=== PATIENT | female | born 1955 | race American Indian/Alaskan Native ===

== ENCOUNTER 2018-12-14 16:45 | Emergency (ER) | payer MEDICARE, OTHER ==
--- NOTE | 2018-12-14 17:46 | Emergency Department Report ---
Blank Doc - Documentation Documentation: 63 y/o female come in for lower blood pressure fatigue, and diizziness. Recently donated plasma. Last donated on Monday. No medications.
[2018-12-14 18:06] LABS: Hematocrit 38.2 % (30.3-42.9); Hemoglobin 12.2 gm/dl (10.1-14.3); Mean Corpuscular HGB Conc 32 % (30-34); Mean Corpuscular Volume 86 fl (79-97); Platelet Count 333 K/mm3 (140-440); Red Blood Count 4.42 M/mm3 (3.65-5.03); Red Cell Distribution Width 15.1 % (13.2-15.2)
[2018-12-14 18:30] LABS: Bacteria,Urine 1+ /HPF (Negative); Bilirubin,Urine NEG (Negative); Blood,Urine NEG (Negative); Color,Urine Yellow (Yellow); Mucus,Urine FEW /HPF
[2018-12-14 18:44] LABS: Albumin 4.2 g/dL (3.9-5); Calcium 8.9 mg/dL (8.4-10.2)
[2018-12-14] MEDS ORDERED: NACL 0.9% 1000 ML 2,000 ML IV ONE (18:54)
[2018-12-14] MEDS ORDERED: NACL 0.9% 1000 ML 1,000 ML IV ONE (18:54)
--- NOTE | 2018-12-14 18:55 | Emergency Department Report ---
ED General Adult HPI - General Chief complaint: Weakness Stated complaint: DIZZINESS/LOW BLOOD PRESSURE Time Seen by Provider: 12/14/18 17:11 Source: patient, RN notes reviewed Mode of arrival: Ambulatory Limitations: No Limitations - History of Present Illness Initial comments: This is a 63-year-old female. The patient is not known to this provider pr eviously. She does not have a local primary care doctor. She does not take any chronic medications. She denies a history of chronic medical problems. She presents to the emergency room with complaint of painless lightheadedness and almost passing out. This has been going on for 1 day. It is intermittent. It decreases with rest, and sitting flat. It also decreased with IV fluids. She denies headache, neck pain, chest pain, abdominal pain, shortness of breath. She denies urinary symptoms. She reports dark brown stool. Has not had a colonoscopy less far. Had a Pap smear and mammogram 3 years ago, which she believes were "normal." Reports recent road shipped to [place] within the past month, no leg pain, no leg swelling, and reports one-stop during her road trip for a bathroom break. The patient denies headache. -: Gradual Severity scale (0 -10): 0 Consistency: intermittent Improves with: other Worsens with: other - Related Data Allergies Allergy/AdvReac Type Severity Reaction Status Date / Time No Known Allergies Allergy Unverified 12/14/18 16:54 ED Review of Systems ROS: Stated complaint: DIZZINESS/LOW BLOOD PRESSURE Other details as noted in HPI Constitutional: malaise, weakness. denies: fever Eyes: denies: eye discharge ENT: denies: epistaxis Respiratory: denies: cough Cardiovascular: other. denies: chest pain Gastrointestinal: denies: abdominal pain, nausea, vomiting, hematemesis, melena, hematochezia Genitourinary: denies: dysuria Skin: denies: as per HPI, lesions Neurological: weakness. denies: headache, numbness, paresthesias, confusion Psychiatric: denies: anxiety ED Past Medical Hx - Past Medical History Previous Medical History?: No - Surgical History Past Surgical History?: No - Social History Smoking Status: Current Every Day Smoker Substance Use Type: Alcohol ED Physical Exam - General Limitations: No Limitations General appearance: alert, in no apparent distress - Head Head exam: Present: atraumatic, normocephalic - Eye Eye exam: Present: normal appearance, PERRL, EOMI, other (visual acuity intact to finger counting, color perception, reading at a close distance). Absent: nystagmus - ENT ENT exam: Present: normal exam, normal orophraynx, mucous membranes moist, normal external ear exam - Neck Neck exam: Present: normal inspection, full ROM. Absent: tenderness, meningismus - Respiratory Respiratory exam: Present: normal lung sounds bilaterally. Absent: respiratory distress - Cardiovascular Cardiovascular Exam: Present: regular rate, normal rhythm, normal heart sounds. Absent: bradycardia, tachycardia, irregular rhythm, systolic murmur, diastolic murmur, rubs, gallop - GI/Abdominal GI/Abdominal exam: Present: soft. Absent: distended, tenderness, guarding, rebound, rigid, pulsatile mass - Rectal Rectal exam: Present: normal inspection, normal rectal tone, heme (-) stool, other (chaperoned by nurse LAKISHA WESTON). Absent: heme (+) stool, black stool, bloody stool, fecal impaction, hemorrhoids, mass, tenderness - Extremities Exam Extremities exam: Present: normal inspection, full ROM, other (2+ pulses noted in the bilateral upper, lower extremities. Compartments soft. No long bony tenderness. The pelvis is stable.). Absent: pedal edema, joint swelling, calf tenderness - Back Exam Back exam: Present: normal inspection, full ROM. Absent: tenderness, CVA tenderness (R), CVA tenderness (L), paraspinal tenderness, vertebral tenderness - Neurological Exam Neurological exam: Present: alert (there is no past-pointing. There is normal [id number]. There is a negative pronator drift.), oriented X3, other (Extraocular movements intact. Tongue midline. No facial droop. Facial sensation intact to light touch in the V1, V2, V3 distribution bilaterally. 5 and 5 strength in 4 extremities.. Sensation is intact to light touch in 4 extremities.). Absent: motor sensory deficit - Psychiatric Psychiatric exam: Present: normal affect, normal mood - Skin Skin exam: Present: warm, dry, intact, normal color. Absent: rash ED Course Vital Signs 12/14/18 12/14/18 12/14/18 17:11 18:06 19:15 Temperature 97.9 F 98.1 F 98.1 F Pulse Rate 85 79 71 Respiratory 18 17 12 Rate Blood Pressure 87/36 Blood Pressure 99/60 101/66 [Left] O2 Sat by Pulse 99 99 98 Oximetry 12/14/18 20:49 Temperature Pulse Rate 72 Respiratory 19 Rate Blood Pressure Blood Pressure 117/72 [Left] O2 Sat by Pulse 98 Oximetry - Reevaluation(s) Reevaluation #1: 12/14/18 20:22 Differential diagnosis, including not limited to: Orthostasis, dehydration, pulmonary embolus, anemia, electrolyte derangement, thyroid derangement Assessment and plan: 63-year-old female, not tachycardic, not hypoxic, low risk by well's criteria, with a negative d-dimer, with an unremarkable physical examination. Hypotension improving with IV fluids. Blood pressure in the low 1 00s now. No evidence of anemia on laboratory studies. No evidence of GI bleeding on rectal exam. Screening laboratory studies unremarkable. Suspect orthostasis, hypovolemia as etiology. On reassessment, patient is smiling, calm, reports that she feels improved, and does not appear to be in any acute distress. Hypotension appears to be improving with simple administration of IV fluids. Reevaluation #2: 12/14/18 20:52 Blood pressure improved at 117. Walking with a steady gait. Smiling, feels improved. Patient in no acute distress. Patient is observed in the emergency room for approximately 4 hours without clinical decompensation. She is medically suitable to be discharged with instructions to follow up as an outpatient. ED Medical Decision Making - Lab Data Result diagrams: 12/14/18 17:20 12/14/18 17:20 Vital Signs 12/14/18 12/14/18 12/14/18 17:11 18:06 19:15 Temperature 97.9 F 98.1 F 98.1 F Pulse Rate 85 79 71 Respiratory 18 17 12 Rate Blood Pressure 87/36 Blood Pressure 99/60 101/66 [Left] O2 Sat by Pulse 99 99 98 Oximetry Lab Results 12/14/18 12/14/18 12/14/18 Range/Units 17:20 17:20 17:42 WBC 9.6 (4.5-11.0) K/mm3 RBC 4.42 (3.65-5.03) M/mm3 Hgb 12.2 (10.1-14.3) gm/dl Hct 38.2 (30.3-42.9) % MCV 86 (79-97) fl MCH 28 (28-32) pg MCHC 32 (30-34) % RDW 15.1 (13.2-15.2) % Plt Count 333 (140-440) K/mm3 Add Manual Diff Complete Total Counted 100 Seg Neuts % (Manual) 72 H (40.0-70.0) % Band Neutrophils % 0 % Lymphocytes % (Manual) 18.0 (13.4-35.0) % Reactive Lymphs % (Man) 0 % Monocytes % (Manual) 9.0 H (0.0-7.3) % Eosinophils % (Manual) 0 (0.0-4.3) % Basophils % (Manual) 0 (0.0-1.8) % Metamyelocytes % 1.0 % Myelocytes % 0 % Promyelocytes % 0 % Blast Cells % 0 % Nucleated RBC % Not Reportable Seg Neutrophils # Man 6.9 (1.8-7.7) K/mm3 Band Neutrophils # 0.0 K/mm3 Lymphocytes # (Manual) 1.7 (1.2-5.4) K/mm3 Abs React Lymphs (Man) 0.0 K/mm3 Monocytes # (Manual) 0.9 H (0.0-0.8) K/mm3 Eosinophils # (Manual) 0.0 (0.0-0.4) K/mm3 Basophils # (Manual) 0.0 (0.0-0.1) K/mm3 Metamyelocytes # 0.1 K/mm3 Myelocytes # 0.0 K/mm3 Promyelocytes # 0.0 K/mm3 Blast Cells # 0.0 K/mm3 WBC Morphology Not Reportable Hypersegmented Neuts Not Reportable Hyposegmented Neuts Not Reportable Hypogranular Neuts Not Reportable Smudge Cells Not Reportable Toxic Granulation Not Reportable Toxic Vacuolation Not Reportable Dohle Bodies Not Reportable Pelger-Huet Anomaly Not Reportable Ismael Rods Not Reportable Platelet Estimate Appears normal Clumped Platelets Not Reportable Plt Clumps, EDTA Not Reportable Large Platelets Not Reportable Giant Platelets Not Reportable Platelet Satelliting Not Reportable Plt Morphology Comment Not Reportable RBC Morphology Normal Dimorphic RBCs Not Reportable Polychromasia Not Reportable Hypochromasia Not Reportable Poikilocytosis Not Reportable Anisocytosis Not Reportable Microcytosis Not Reportable Macrocytosis Not Reportable Spherocytes Not Reportable Pappenheimer Bodies Not Reportable Sickle Cells Not Reportable Target Cells Not Reportable Tear Drop Cells Not Reportable Ovalocytes Not Reportable Helmet Cells Not Reportable [place] Bodies Not Reportable [place] Rings Not Reportable [place]la Cells Not Reportable Bite Cells Not Reportable Crenated Cell Not Reportable Elliptocytes Not Reportable Acanthocytes (Spur) Not Reportable Rouleaux Not Reportable Hemoglobin C Crystals Not Reportable Schistocytes Not Reportable Malaria parasites Not Reportable Brady Bodies Not Reportable Hem Pathologist Commnt No PT (12.2-14.9) Sec. INR (0.87-1.13) APTT (24.2-36.6) Sec. D-Dimer (0-234) ng/mlDDU Sodium 141 (137-145) mmol/L Potassium 4.4 (3.6-5.0) mmol/L Chloride 107.3 H (98-107) mmol/L Carbon Dioxide 25 (22-30) mmol/L Anion Gap 13 mmol/L BUN 14 (7-17) mg/dL Creatinine 1.0 (0.7-1.2) mg/dL Estimated GFR 56 ml/min BUN/Creatinine Ratio 14 % Glucose 102 H (65-100) mg/dL Calcium 8.9 (8.4-10.2) mg/dL Magnesium (1.7-2.3) mg/dL Total Bilirubin 0.20 (0.1-1.2) mg/dL AST 15 (5-40) units/L ALT 11 (7-56) units/L Alkaline Phosphatase 63 (35-129) units/L Total Creatine Kinase (30-135) units/L Total Protein 7.2 (6.3-8.2) g/dL Albumin 4.2 (3.9-5) g/dL Albumin/Globulin Ratio 1.4 % Urine Color Yellow (Yellow) Urine Turbidity Slightly-cloudy (Clear) Urine pH 6.0 (5.0-7.0) Ur Specific [place] 1.023 (1.003-1.030) Urine Protein 30 mg/dl (Negative) mg/dL Urine Glucose (UA) Neg (Negative) mg/dL Urine Ketones Neg (Negative) mg/dL Urine Blood Neg (Negative) Urine Nitrite Neg (Negative) Urine Bilirubin Neg (Negative) Urine Urobilinogen 4.0 (<2.0) mg/dL Ur Leukocyte Esterase Sm (Negative) Urine WBC (Auto) 3.0 (0.0-6.0) /HPF Urine RBC (Auto) 2.0 (0.0-6.0) /HPF U Epithel Cells (Auto) 10.0 (0-13.0) /HPF Urine Bacteria (Auto) 1+ (Negative) /HPF Urine Mucus Few /HPF 12/14/18 12/14/18 Range/Units 19:22 19:22 WBC (4.5-11.0) K/mm3 RBC (3.65-5.03) M/mm3 Hgb (10.1-14.3) gm/dl Hct (30.3-42.9) % MCV (79-97) fl MCH (28-32) pg MCHC (30-34) % RDW (13.2-15.2) % Plt Count (140-440) K/mm3 Add Manual Diff Total Counted Seg Neuts % (Manual) (40.0-70.0) % Band Neutrophils % % Lymphocytes % (Manual) (13.4-35.0) % Reactive Lymphs % (Man) % Monocytes % (Manual) (0.0-7.3) % Eosinophils % (Manual) (0.0-4.3) % Basophils % (Manual) (0.0-1.8) % Metamyelocytes % % Myelocytes % % Promyelocytes % % Blast Cells % % Nucleated RBC % Seg Neutrophils # Man (1.8-7.7) K/mm3 Band Neutrophils # K/mm3 Lymphocytes # (Manual) (1.2-5.4) K/mm3 Abs React Lymphs (Man) K/mm3 Monocytes # (Manual) (0.0-0.8) K/mm3 Eosinophils # (Manual) (0.0-0.4) K/mm3 Basophils # (Manual) (0.0-0.1) K/mm3 Metamyelocytes # K/mm3 Myelocytes # K/mm3 Promyelocytes # K/mm3 Blast Cells # K/mm3 WBC Morphology Hypersegmented Neuts Hyposegmented Neuts Hypogranular Neuts Smudge Cells Toxic Granulation Toxic Vacuolation Dohle Bodies Pelger-Huet Anomaly Ismael Rods Platelet Estimate Clumped Platelets Plt Clumps, EDTA Large Platelets Giant Platelets Platelet Satelliting Plt Morphology Comment RBC Morphology Dimorphic RBCs Polychromasia Hypochromasia Poikilocytosis Anisocytosis Microcytosis Macrocytosis Spherocytes Pappenheimer Bodies Sickle Cells Target Cells Tear Drop Cells Ovalocytes Helmet Cells Obrien-Blanco Bodies [place] Rings [place] Cells Bite Cells Crenated Cell Elliptocytes Acanthocytes (Spur) Rouleaux Hemoglobin C Crystals Schistocytes Malaria parasites Brady Bodies Hem Pathologist Commnt PT 12.9 (12.2-14.9) Sec. INR 0.92 (0.87-1.13) APTT 23.5 L (24.2-36.6) Sec. D-Dimer 136.45 (0-234) ng/mlDDU Sodium (137-145) mmol/L Potassium (3.6-5.0) mmol/L Chloride (98-107) mmol/L Carbon Dioxide (22-30) mmol/L Anion Gap mmol/L BUN (7-17) mg/dL Creatinine (0.7-1.2) mg/dL Estimated GFR ml/min BUN/Creatinine Ratio % Glucose (65-100) mg/dL Calcium (8.4-10.2) mg/dL Magnesium 2.20 (1.7-2.3) mg/dL Total Bilirubin (0.1-1.2) mg/dL AST (5-40) units/L ALT (7-56) units/L Alkaline Phosphatase (35-129) units/L Total Creatine Kinase 137 H (30-135) units/L Total Protein (6.3-8.2) g/dL Albumin (3.9-5) g/dL Albumin/Globulin Ratio % Urine Color (Yellow) Urine Turbidity (Clear) Urine pH (5.0-7.0) Ur Specific [place] (1.003-1.030) Urine Protein (Negative) mg/dL Urine Glucose (UA) (Negative) mg/dL Urine Ketones (Negative) mg/dL Urine Blood (Negative) Urine Nitrite (Negative) Urine Bilirubin (Negative) Urine Urobilinogen (<2.0) mg/dL Ur Leukocyte Esterase (Negative) Urine WBC (Auto) (0.0-6.0) /HPF Urine RBC (Auto) (0.0-6.0) /HPF U Epithel Cells (Auto) (0-13.0) /HPF Urine Bacteria (Auto) (Negative) /HPF Urine Mucus /HPF - EKG Data -: EKG Interpreted by Me EKG shows normal: sinus rhythm, axis, intervals, QRS complexes, ST-T waves Rate: normal - EKG Data When compared to previous EKG there are: previous EKG unavailable Interpretation: normal EKG Critical care attestation.: If time is entered above; I have spent that time in minutes in the direct care of this critically ill patient, excluding procedure time. ED Disposition Clinical Impression: History of hypotension Disposition: DC-01 TO HOME OR SELFCARE Is pt being admited?: No Does the pt Need Aspirin: No Condition: Stable Instructions: Dehydration (ED) Additional Instructions: Make certain to drink 4-6 cups of water per day. Make certain to eat 3-4 medium to large sized meals per day. Please follow-up in 2-3 days for repeat c heckup/evaluation. The patient may follow up with an outpatient primary care doctor, or she may return to this emergency room, or follow up with an urgent care center for outpatient recheck. The patient should follow up to have her blood pressure rechecked. In addition, the patient should follow-up with a primary care doctor within the next 2 months for outpatient routine screening tests. Patient will need to be screened for mammogram, Pap smear and colonoscopy. Not following up as recommended may resultant undiagnosed tumor, cancer, malignancy. The patient may follow-up with a car rental agent for colonoscopy. The patient may follow-up with the primary care doctor to have the aforementioned outpatient screening tests set up. Please return to the emergency room right away with new, worsening or different symptoms, change in mental status, confusion, inability to tolerate liquid feeds, new, worsening or different symptoms not present on the initial ER evaluation. Referrals: LEN LUGO MD [Primary Care Provider] - 3-5 Days [facility] [Provider Group] - 3-5 Days [facility] [Provider Group] - 3-5 Days [facility] [Provider Group] - 3-5 Days
[2018-12-14 19:19] LABS: Basophils % (Manual) 0 % (0.0-1.8); Eosinophils % (Manual) 0 % (0.0-4.3); Total Cells Counted 100
[2018-12-14 19:21] LABS: RBC Morphology Normal
[2018-12-14 19:57] LABS: INR 0.92 (0.87-1.13)
[2018-12-14 19:58] LABS: Partial Thromboplastin Time 23.5 Sec. (24.2-36.6)
[2018-12-14 21:20] VITALS: BP 125/69
== END 2018-12-14 21:19 | disposition home or self-care (01) ==
LOC: ED 16:45
DX: I95.9 Hypotension, unspecified (principal); F17.200 Nicotine dependence, unspecified, uncomplicated
CPT/HCPCS: 36415; 80053; 81001; 82271; 82550; 83735; 85007; 85025; 85379; 85610; 85730; 93005; 93010; 96360; 96361; 99284; J7030

== ENCOUNTER 2019-02-15 12:08 | Emergency (ER) | payer MEDICARE ==
[2019-02-15 12:52] VITALS: BP 99/64
--- NOTE | 2019-02-15 12:57 | Emergency Department Report ---
Blank Doc - Documentation Documentation: Patient c/o WILSON started 4 days ago that has been worsening. Pain at both sides of head at buddhism. Denies Has appointment to see PCP in 2 week. Patient with nasal congestion, runny nose pnd H/o WILSON BP 99/64 with h/o Low BP HR stable
--- NOTE | 2019-02-15 14:47 | Emergency Department Report ---
HPI - General Chief Complaint: Headache Time Seen by Provider: 02/15/19 12:50 - HPI HPI: 63-year-old -[place] female presents to the emergency department with complaint of a 5 day history of some intermittent headaches. The pain was to the front of the head and the bilateral temporal area. She denies any vision change, slurred speech, fever or any neurological deficits. She denies any past medical history. She took an aspirin for her symptoms with relief. Currently the patient is asymptomatic. She has a new primary care physician, Dr. Brendon Sterling. No recent travel or sick contacts at home. ED Past Medical Hx - Past Medical History Previous Medical History?: No - Surgical History Past Surgical History?: No - Social History Smoking Status: Smoker, Current Status Unknown Substance Use Type: Alcohol ED Review of Systems ROS: Stated complaint: HEADACHE Other details as noted in HPI Comment: All other systems reviewed and negative Constitutional: denies: chills, fever Eyes: denies: eye pain, vision change ENT: denies: ear pain, throat pain Respiratory: denies: cough, shortness of breath Cardiovascular: denies: chest pain, palpitations Gastrointestinal: denies: abdominal pain, vomiting Genitourinary: denies: dysuria, frequency Musculoskeletal: denies: back pain, arthralgia Skin: denies: rash, lesions Neurological: denies: headache, weakness Physical Exam - Physical Exam Vital Signs: Vital Signs 02/15/19 12:50 Temperature 98 F Pulse Rate 74 Respiratory 18 Rate Blood Pressure 99/64 O2 Sat by Pulse 98 Oximetry Physical Exam: GENERAL: The patient is well-developed well-nourished. HENT: Normocephalic. Atraumatic. Patient has moist mucous membranes. EYES: Extraocular motions are intact. Pupils equal reactive to light bilaterally. No nystagmus. NECK: Supple. Trachea is midline. CHEST/LUNGS: Clear to auscultation. There is no respiratory distress noted. HEART/CARDIOVASCULAR: Regular. There is no tachycardia. There is no murmur. ABDOMEN: Abdomen is soft, nontender. Patient has normal bowel sounds. There is no abdominal distention. SKIN: Skin is warm and dry. NEURO: The patient is awake, alert, and oriented. The patient is cooperative. The patient has no focal neurologic deficits. The patient has normal speech. Cranial nerves II through XII grossly intact. No pronator drift. No dysmetria. MUSCULOSKELETAL: There is no tenderness or deformity. There is no limitation range of motion. There is no evidence of acute injury. ED Course Vital Signs 02/15/19 12:50 Temperature 98 F Pulse Rate 74 Respiratory 18 Rate Blood Pressure 99/64 O2 Sat by Pulse 98 Oximetry ED Medical Decision Making - Medical Decision Making This patient appears to have presented to the emergency department with a complaint of some intermittent headaches that she been having over the past week. However at the time of my examination the patient is asymptomatic. On the examination, the patient does not have any focal, motor or sensory deficits in her cranial nerves are intact. Since she is asymptomatic, does not have any neurological deficits, I did not feel that CT imaging of the head was necessary at this time. Her vital signs were stable throughout her ED course. The patient has been instructed to follow up with primary care and will return to the emergency Department with any worsening of her symptoms or any acute distress. - Differential Diagnosis tension headache, migraine, subarachnoid, cluster headache Critical Care Time: No Critical care attestation.: If time is entered above; I have spent that time in minutes in the direct care of this critically ill patient, excluding procedure time. ED Disposition Clinical Impression: Headache Qualifiers: Headache type: unspecified Headache chronicity pattern: episodic headache Intractability: not intractable Qualified Code(s): R51 - Headache Disposition: DC-01 TO HOME OR SELFCARE Is pt being admited?: No Condition: Stable Instructions: Acute Headache (ED) Additional Instructions: Please follow-up with your primary care physician in the next few days. Return to the emergency department with any return or worsening of your symptoms, any acute distress. Referrals: Primary Care Provider, your [Other] - 2-3 Days Forms: Work/School Release Form(ED) Time of Disposition: 14:49
== END 2019-02-15 15:08 | disposition home or self-care (01) ==
LOC: ED 12:08
DX: R51 Headache (principal); F17.200 Nicotine dependence, unspecified, uncomplicated
CPT/HCPCS: 99282

== ENCOUNTER 2021-12-06 11:38 | Emergency (ER) | payer MEDICARE, OTHER ==
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
[2021-12-06 18:26] VITALS: BP 128/95
== END 2021-12-06 18:23 | disposition home or self-care (01) ==
LOC: ED 11:38
DX: S39.012A Strain of muscle, fascia and tendon of lower back, initial encounter (principal); S16.1XXA Strain of muscle, fascia and tendon at neck level, initial encounter; M25.552 Pain in left hip; R07.89 Other chest pain; V89.2XXA Person injured in unspecified motor-vehicle accident, traffic, initial encounter; Y93.89 Activity, other specified; Y92.89 Other specified places as the place of occurrence of the external cause; Y99.8 Other external cause status
CPT/HCPCS: 71250; 99284